=== PATIENT | male | born 1995 | race Caucasian/White ===

== ENCOUNTER 2021-08-19 12:37 | Emergency (ER) | payer SELFPAY ==
[2021-08-19 12:40] VITALS: BP 130/79; PULSE 65; RESP 16; TEMP 36.8; O2SAT 100
--- NOTE | 2021-08-19 12:45 | ECG_ITS ---
Measurements Intervals [place] Rate: 85 P: 70 [place]: 132 QRS: 80 QRSD: 89 T: 43 QT: 357 QTc: 426 Interpretive Statements BASELINE ARTIFACT, DIFFICULT INTERPRETATION SINUS RHYTHM WITH SINUS ARRHYTHMIA NO PREVIOUS ECG AVAILABLE FOR COMPARISON Electronically Signed On 08-20-2021 15:52:42 CDT by Nick Alexander M.D.
[2021-08-19 13:11] VITALS: PULSE 68; RESP 19; O2SAT 99
[2021-08-19 13:18] VITALS: PULSE 76; RESP 17; O2SAT 100
[2021-08-19] MEDS: SODIUM CHLORIDE 0.9% IV 1,000 ML 999 ML IV CONT (13:19)
[2021-08-19 13:26] LABS: Basophils Absolute Auto 0.02 K/mm3 (0.00-0.10); Basophils Percent Auto 0.4 % (0.0-1.0); Eosinophils Absolute Auto 0.06 K/mm3 (0.02-0.50); Eosinophils Percent Auto 1.1 % (1.0-6.0); Hematocrit 39.4 % (40.0-54.0); Hemoglobin 13.2 g/dL (14.0-18.0); Immature Granulocyte Absolute 0.02 K/mm3 (0.00-0.00); Immature Granulocyte Percent A 0.4 % (0.0-0.0); Lymphocytes Absolute Auto 0.93 K/mm3 (1.10-4.50); Lymphocytes Percent Auto 16.9 % (18.0-42.0); Mean Corpuscular HGB Conc 33.5 g/dL (32.0-36.0); Mean Corpuscular Hemoglobin 28.5 pg (27.0-31.0); Mean Corpuscular Volume 85.1 fL (78.0-102.0); Mean Platelet Volume 9.8 fl (8.7-11.0); Monocytes Absolute Auto 0.32 K/mm3 (0.10-0.90); Monocytes Percent Auto 5.8 % (2.0-11.0); Neutrophils Absolute Auto 4.1 K/mm3 (1.7-7.2); Neutrophils Percent Auto 75.4 % (50.0-70.0); Platelet Count Result 142 K/mm3 (150-420); Red Blood Count 4.63 M/mm3 (4.70-6.10); White Blood Count 5.5 K/mm3 (4.8-10.8)
[2021-08-19 13:43] LABS: Alanine Aminotransferase 16 U/L (16-63); Albumin Level 4.3 g/dL (3.4-5.0); Alkaline Phosphatase 53 U/L (46-116); Anion Gap 6 mmol/L (8-16); Aspartate Amino Transferase 16 U/L (15-37); Bilirubin,Total 0.5 mg/dL (0.00-1.00); Blood Urea Nitrogen 20 mg/dL (7-18); Calcium 8.8 mg/dL (8.5-10.1); Carbon Dioxide 29 mmol/L (21-32); Chloride 106 mmol/L (98-108); Creatine Kinase 142 U/L (39-308); Estimated CRCL calculation 85 ml/min; Estimated Glomerular Filt Rate > 60; Glucose 105 mg/dL (70-99); Osmolality Calculated 294 mOsm/kg (285-295); Potassium 3.9 mmol/L (3.5-5.1); Sodium 141 mmol/L (136-145); Total Protein 7.3 g/dL (6.4-8.2); Troponin I 5.5 ng/L (0.00-60.4)
--- NOTE | 2021-08-19 13:50 | ED.GENADULT ---
HPI - General Adult General Chief complaint: Anxiety Stated complaint: Chest pains,light headed Source: patient Mode of arrival: ambulatory Limitations: no limitations History of Present Illness HPI narrative: this is a 26-year-old gentleman that presents after he was at work and felt some pressure in his chest currently has subsided and resolved with no shortness of breath no nausea vomiting no fever chills no abdominal pain no diarrhea constipation no flank pain no dysuria or hematuria. Onset (ago): hour(s) Severity: mild Related Data Home Medications Medication Instructions Recorded Confirmed buprenorphine 8 mg-naloxone 2 mg 2 film sublingual DAILY 08/19/21 08/19/21 sublingual film Allergies Allergy/AdvReac Type Severity Reaction Status Date / Time No Known Allergies Allergy Verified 08/19/21 12:52 Review of Systems Review of Systems: All systems reviewed & are unremarkable except as noted in HPI and below PMFSH Past Medical History Medical History Patient denies medical problems Social History Social History Substance use type: opiates Exam Const: General: healthy appearing, no acute distress and alert Limitations: no limitations HENMT: Head: normal to inspection Face and sinus: normal facial exam Mouth: Yes Normal oral and palatal mucosa present Eyes: Pupils: Equal, round and reactive pupils present Neck: Neck: normal visual inspection, no lymphadenopathy and no meningeal signs Chest: Chest palpation & inspection: normal inspection of the chest Resp: Effort & Inspection: normal respiratory effort Cardio: Rate: regular rate Rhythm: regular rhythm GI: GI Palp: Yes Soft to palpation Auscultation: normal bowel sounds Urinary Catheter: Urinary Catheter: patent and draining Back/Spine/Pelvis: Back: no CVA tenderness Skin: General skin exam: normal color Rashes: no rashes Wounds: no wounds Neuro: General: patient oriented x3 and moves all extremities Extrem: General: normal to inspection Psych: Mental Status: mental status grossly normal Course Course Emergency Course: the EKG and labs reviewed with patient otherwise his chest discomfort has resolved, patient did receive IV fluids. Vital Signs Vital signs: Vital Signs Temperature 36.8 C 08/19/21 12:40 Pulse Rate 65 08/19/21 12:40 Respiratory Rate 16 08/19/21 12:40 Blood Pressure 130/79 08/19/21 12:40 Pulse Oximetry 100 08/19/21 12:40 Oxygen Delivery Room Air 08/19/21 12:40 Temperature 36.8 C 08/19/21 12:40 Pulse Rate 76 08/19/21 13:18 Respiratory Rate 17 08/19/21 13:18 Blood Pressure 130/79 08/19/21 12:40 Pulse Oximetry 100 08/19/21 13:18 Oxygen Delivery Room Air 08/19/21 12:40 Medical Decision Making Vital Signs Vital Signs: Vital Signs Temperature 36.8 C 08/19/21 12:40 Pulse Rate 65 08/19/21 12:40 Respiratory Rate 16 08/19/21 12:40 Blood Pressure 130/79 08/19/21 12:40 Pulse Oximetry 100 08/19/21 12:40 Oxygen Delivery Room Air 08/19/21 12:40 Temperature 36.8 C 08/19/21 12:40 Pulse Rate 76 08/19/21 13:18 Respiratory Rate 17 08/19/21 13:18 Blood Pressure 130/79 08/19/21 12:40 Pulse Oximetry 08/19/21 13:18 Oxygen Delivery Room Air 08/19/21 12:40 Lab Data Result diagrams: 08/19/21 13:21 08/19/21 13:21 Labs: Lab Results 08/19/21 08/19/21 Range/Units 13:21 13:21 WBC 5.5 (4.8-10.8) K/mm3 RBC 4.63 L (4.70-6.10) M/mm3 Hgb 13.2 L (14.0-18.0) g/dL Hct 39.4 L (40.0-54.0) % MCV 85.1 (78.0-102.0) fL MCH 28.5 (27.0-31.0) pg MCHC 33.5 (32.0-36.0) g/dL RDW 13.0 (11.6-14.4) % Plt Count 142 L (150-420) K/mm3 MPV 9.8 (8.7-11.0) fl Immature Gran % (Auto) 0.4 H (0.0-0.0) % Neut % (Auto) 75.4 H (50.0-70.0) % Lymph % (Auto) 16.9
[2021-08-19 14:02] VITALS: BP 103/58; PULSE 61; RESP 16; TEMP 36.8; O2SAT 100
[2021-08-19 14:10] VITALS: TEMP 36.7
--- NOTE | 2021-08-19 14:23 | PC.NURSE ---
1350 pt is sitting up on stretcher watching tv at this time. nad noted. pt is much more calm than upon arrival. ivf infusing as ordered without difficulty. vss per monitor. will continue to monitor.
== END 2021-08-19 14:10 | disposition home or self-care (01) ==
PROVIDERS: Emergency Provider Emergency Medicine
DX: F41.9 Anxiety disorder, unspecified (principal); R07.89 Other chest pain
CPT/HCPCS: 36415; 80053; 82550; 84484; 85025; 93005; 96360; 99284; J7030